=== PATIENT | male | born 1940 | race Caucasian/White ===

== ENCOUNTER 2016-10-18 10:32 | Day surgery (SDC) | payer MEDICARE ==
[~2016-10-18] VITALS: Ht 177.8 cm; Wt 129.3 kg
[~2016-10-18 10:32] MED LIST: ACETAMINOPHEN 325 MG TAB PO PRN; ACETYLCHOLINE OPHTH SOLN 1% 2ML (MIOCHOL-E) As Ordered ONE; BALANCED SALT IRRIGATION SOLUTION 500ML BAG (FOR OR EYE MACHINE) As Ordered ONE; CEFUROXIME 1MG/0.1ML INTRACAMERAL INJ As Ordered ONE; CYCLOPENTOLATE 2% OPHTH SOLN 2ML BTL OS ONE; HEALON DUET (HEALON 10MG/ML 0.55ML & HEALON ENDOCOAT 30MG/ML 0.85ML) As Ordered ONE; HYDR-3713 PO; LIDOCAINE 1% SDV 5 ML VIAL As Ordered ONE; LIDOCAINE 3.5 % 1ML OPHTH TOPICAL GEL OU ONE; METF850T4 PO; MUCU400T8 PO; OFLOXACIN 0.3 % (OCUFLOX) OPTH SOL 5ML OS ONE; PARO20TA4 PO; PHENYLEPHRINE 2.5% OPHTH SOL 2ML OS ONE; POVIDONE-IODINE 5% OPHTH PREP SOL 30ML As Ordered ONE; PROPARACAINE 0.5% OPHTH SOL 15ML XX PRN; SIMV40TA2 PO; TROPICAMIDE 1% OPHTH SOLN 2ML OS ONE; VITA100066 PO; [UNRECOGNIZED DRUG - OTHER] PO
[2016-10-18] MEDS ORDERED: LR 1,000 ML IV ONE (11:00)
[2016-10-18] MEDS ORDERED: fentaNYL 100 MCG/2 ML INJECTION (J3010) As Ordered ONE (12:28)
[2016-10-18] MEDS ORDERED: MIDAZOLAM INJ 2 MG/2 ML VIAL (J2250) As Ordered ONE (12:28)
[2016-10-18] MEDS ORDERED: PROPARACAINE 0.5% OPHTH SOL 15ML OS PRN (12:49)
[2016-10-18] MEDS ORDERED: AcetaZOLAMIDE 500 MG ER CAP PO ONE (13:00)
[2016-10-18] MEDS ORDERED: KETOROLAC 0.5% OPHTH SOLN OS ONE (13:00)
[2016-10-18] MEDS ORDERED: TRIMETHOBENZAMIDE 300 MG CAP PO PRN (13:00)
[2016-10-18] MEDS ORDERED: KETOROLAC 0.5% OPHTH SOLN XX ONE (13:00)
[2016-10-18 13:05] VITALS: BP 134/71
--- NOTE | 2016-10-19 10:49 | RO ---
DATE OF PROCEDURE: 10/18/2016 PREOPERATIVE DIAGNOSIS: Age-related nuclear cataract left eye. POSTOPERATIVE DIAGNOSIS: Age-related nuclear cataract left eye. PROCEDURE PERFORMED: Phacoemulsification with posterior chamber intraocular lens implantation left eye. Lens used was AU00T0, 18.5 diopters. SURGEON: Massiel English MD ADJUNCT INSTRUCTOR: ANESTHESIA: Topical with sedation. DESCRIPTION OF PROCEDURE: The patient was prepped and draped in the usual fashion. A lid speculum was placed between the lids. The eye was fixated. A stab incision was made to the anterior chamber, and 1% non-preserved lidocaine was instilled. Then, viscoelastic was instilled. The eye was re-fixated. A 2.75 mm sapphire keratome was used to make a clear corneal temporal limbal incision. Capsulorrhexis was begun with a 30-gauge bent needle and then carried out in a circular fashion with capsulorrhexis forceps. The lens was hydrodissected, and then the phacoemulsification unit was used to make a groove in the nucleus in two meridians. The nucleus was then cracked into four quadrants. Each quadrant was removed with the phacoemulsification unit. Any remaining cortex was removed with the irrigation and aspiration (I and A) unit. Capsular bag was refilled with viscoelastic. A posterior chamber intraocular lens was placed in the capsular bag without difficulty. Any remaining viscoelastic was removed with the I and A unit. The wound was hydrated, and Miochol and cefuroxime were instilled into the anterior chamber. The patient tolerated the procedure well and went to the recovery room in stable condition.
[2016-10-24] MEDS ORDERED: NOVO1INJ4 SC ×2 (11:11)
== END 2016-10-18 13:15 | disposition home or self-care (01) ==
LOC: M SDC 10:32
PROVIDERS: ATTEND Ophthalmology
DX: H25.12 Age-related nuclear cataract, left eye (principal); E78.5 Hyperlipidemia, unspecified; E11.9 Type 2 diabetes mellitus without complications; M47.819 Spondylosis without myelopathy or radiculopathy, site unspecified; R06.83 Snoring; E66.9 Obesity, unspecified; Z85.46 Personal history of malignant neoplasm of prostate; Z87.891 Personal history of nicotine dependence; Z79.899 Other long term (current) drug therapy; Z79.84 Long term (current) use of oral hypoglycemic drugs
CPT/HCPCS: 66984; J2250; J3010; V2632

== ENCOUNTER 2016-10-25 10:51 | Day surgery (SDC) | payer MEDICARE ==
[~2016-10-25] VITALS: Ht 174 cm; Wt 127.9 kg
[~2016-10-25 10:51] MED LIST changes: +CYCLOPENTOLATE 2% OPHTH SOLN 2ML BTL OD ONE; -CYCLOPENTOLATE 2% OPHTH SOLN 2ML BTL OS ONE; +NOVO1INJ4 SC; +OFLOXACIN 0.3 % (OCUFLOX) OPTH SOL 5ML OD ONE; -OFLOXACIN 0.3 % (OCUFLOX) OPTH SOL 5ML OS ONE; +PHENYLEPHRINE 2.5% OPHTH SOL 2ML OD ONE; -PHENYLEPHRINE 2.5% OPHTH SOL 2ML OS ONE; +PROPARACAINE 0.5% OPHTH SOL 15ML OD PRN; -PROPARACAINE 0.5% OPHTH SOL 15ML XX PRN; +TROPICAMIDE 1% OPHTH SOLN 2ML OD ONE; -TROPICAMIDE 1% OPHTH SOLN 2ML OS ONE
[2016-10-25] MEDS ORDERED: LR 1,000 ML IV ONE (11:00)
[2016-10-25] MEDS ORDERED: D5W/0.2% SODIUM CHLORIDE 250 ML IV ONE (11:00)
[2016-10-25] MEDS ORDERED: MIDAZOLAM INJ 2 MG/2 ML VIAL (J2250) As Ordered ONE (11:38)
[2016-10-25] MEDS ORDERED: fentaNYL 100 MCG/2 ML INJECTION (J3010) As Ordered ONE (11:38)
[2016-10-25] MEDS ORDERED: AcetaZOLAMIDE 500 MG ER CAP As Ordered ONE (12:08)
[2016-10-25] MEDS ORDERED: AcetaZOLAMIDE 500 MG ER CAP PO ONE (12:15)
[2016-10-25] MEDS ORDERED: TRIMETHOBENZAMIDE 300 MG CAP PO PRN (12:15)
[2016-10-25] MEDS ORDERED: KETOROLAC 0.5% OPHTH SOLN OD ONE (12:15)
[2016-10-25 12:40] VITALS: BP 154/71
--- NOTE | 2016-10-26 05:50 | RO ---
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 PROCEDURE PERFORMED: Phacoemulsification, posterior chamber intraocular lens implantation, and use of pupil expansion device. Lens used was AU00T0, 18.5 diopters. SURGEON: Massiel English MD REFINERY OPERATOR REFORMING UNIT: ANESTHESIA: Topical with sedation. DESCRIPTION OF PROCEDURE: Patient was prepped and draped in the usual fashion. Lid speculum placed between the lids. The eye was fixated. A stab incision was made into the anterior chamber. 1% nonpreserved lidocaine was instilled and viscoelastic instilled. The eye was re-fixated. A 2.4 mm keratome was used to make a clear corneal temporal limbal incision. Malyugin ring was placed into its hydrocrane operator and injected into the eye, first the distal scroll engaging the iris, the superior and inferior scrolls engaging the iris. The proximal scroll was placed with manipulation hook. Capsulorrhexis was then begun with a 30-gauge bent needle and carried out in a circular fashion with the capsulorrhexis forceps. The lens was hydrodissected, and the phacoemulsification unit was used to groove the nucleus in two meridians. The nucleus was cracked into four quadrants. Each quadrant was removed with the phacoemulsification unit. Any remaining cortex was removed with the irrigation and aspiration (I and A) unit. The capsular bag was refilled with viscoelastic. A posterior chamber intraocular lens was placed into the capsular bag without difficulty. The Malyugin ring was then disinserted from the iris at the four scrolls with the manipulation hook and extracted from the eye. The viscoelastic was removed from the eye with the I and A unit. The wound was hydrated, and Miochol and cefuroxime were instilled. Patient tolerated the procedure well and went to recovery room instable condition.
== END 2016-10-25 12:55 | disposition home or self-care (01) ==
LOC: M SDC 10:51
PROVIDERS: ATTEND Ophthalmology
DX: H25.11 Age-related nuclear cataract, right eye (principal); H57.03 Miosis; E11.9 Type 2 diabetes mellitus without complications; E78.00 Pure hypercholesterolemia, unspecified; M47.9 Spondylosis, unspecified; R06.83 Snoring; Z85.46 Personal history of malignant neoplasm of prostate; Z92.3 Personal history of irradiation; Z79.899 Other long term (current) drug therapy; Z79.4 Long term (current) use of insulin
CPT/HCPCS: 66982; J2250; J3010; V2632